=== PATIENT | female | born 1995 | race Caucasian/White ===

== ENCOUNTER 2017-10-11 10:15 | Emergency (ER) | payer OTHER ==
[~2017-10-11] VITALS: Ht 142.2 cm; Wt 35.4 kg
[2017-10-11 10:17] VITALS: TEMP 98.5
[2017-10-11] MEDS ORDERED: NORCO 325 MG-51 TAB PO (11:41)
[2017-10-11 11:42] VITALS: BP 127/71; PULSE 70
== END 2017-10-11 11:54 | disposition home or self-care (01) ==
LOC: COL.ER 10:15
DX: S32.2XXA Fracture of coccyx, initial encounter for closed fracture (principal); F17.210 Nicotine dependence, cigarettes, uncomplicated; W10.9XXA Fall (on) (from) unspecified stairs and steps, initial encounter